=== PATIENT | female | born 1955 | race Caucasian/White ===

== ENCOUNTER → 2017-12-03 09:33 | Outpatient (CLI) | payer OTHER, SELFPAY ==
[2017-12-03 10:16] LABS: Absolute Neutrophil Count 2.9 X10^3/uL (2.0-7.7); Basophil# 0.01 X10^3/uL; Basophil% 0.2 % (0-1); Eosinophil# 0.12 X10^3/uL; Eosinophils% 2.5 % (0-5); Hematocrit 42.4 % (37-47); Hemoglobin 14.3 g/dl (12.0-15.0); Lymphocyte % 27.3 % (19-41); Mean Corp Hgb Conc 33.7 g/gl (32-36); Mean Corpuscular Hgb 31.2 pg (27.0-32.0); Mean Corpuscular Volume 92.6 fL (81-99); Monocyte# 0.45 X10^3/uL; Monocyte% 9.4 % (0-10); Neutrophil # 2.88 X10^3/uL (2.7-7.7); Neutrophil % 60.4 % (47-70); Platelet Count 207 K/mm3 (150-450); RBC Distribution Width CV 12.6 % (11.6-14.6); Red Blood Count 4.58 M/mm3 (4.2-5.4); White Blood Count 4.8 K/mm3 (4.4-11.0)
[2017-12-03 10:29] LABS: POSITIVE COUNT NO; POSITIVE DIFFERENTIAL NO; POSITIVE MORPHOLOGY NO
[2017-12-03 10:48] LABS: Hemoglobin A1c 5.8 % (4.2-6.3)
[2017-12-03 10:57] LABS: Anion Gap 3 (5-15); BUN 19 mg/dL (7-18); BUN/Creat Ratio 19.7 RATIO (10-20); Calcium,Total 8.6 mg/dL (8.5-10.1); Chloride 106 mmol/L (98-107); Creatinine, Serum 0.97 mg/dL (0.55-1.02); EST Glomerular Filtration Rate 62 mL/min (>60); Est Glom Filt Rate - Afr Amer 75 mL/min (>60); Glucose 99 mg/dL (74-106); Potassium 3.7 mmol/L (3.5-5.1); Sodium Level 141 mmol/L (136-145); Thyroid Stim Hormone (TSH) 3.72 uIU/mL (0.358-3.74)
[2017-12-03 11:02] LABS: Vitamin D,25 Hydroxy 35.3 ng/mL (29.95-100.01)
== END ==
PROVIDERS: Family Provider Family Medicine; PCP Family Medicine; Visit Provider Family Medicine
DX: I10 Essential (primary) hypertension (principal); R73.01 Impaired fasting glucose; R94.6 Abnormal results of thyroid function studies; E55.9 Vitamin D deficiency, unspecified
CPT/HCPCS: 36415; 80048; 82306; 83036; 84443; 85025

== ENCOUNTER → 2017-12-14 15:11 | Outpatient (CLI) | payer OTHER, SELFPAY | PROVIDERS: Family Provider Family Medicine; PCP Family Medicine; Visit Provider Family Medicine | DX: R05 Cough (principal) | CPT/HCPCS: 71046 ==

== ENCOUNTER 2018-09-21 09:00 | Outpatient (RCR) | payer OTHER, SELFPAY | END 2018-09-30 23:59 | LOC: NS 09:00 | PROVIDERS: Family Provider Family Medicine; PCP Family Medicine; Visit Provider Family Medicine | DX: E66.9 Obesity, unspecified (principal); Z68.31 Body mass index [BMI] 31.0-31.9, adult; Z71.3 Dietary counseling and surveillance | CPT/HCPCS: 97802; 97803 ==

== ENCOUNTER 2018-10-10 16:35 | Outpatient (RCR) | payer OTHER, SELFPAY | END 2018-10-30 23:59 | LOC: NS 16:35 | PROVIDERS: Family Provider Family Medicine; PCP Family Medicine; Visit Provider Family Medicine | DX: E66.9 Obesity, unspecified (principal); Z68.31 Body mass index [BMI] 31.0-31.9, adult; Z71.3 Dietary counseling and surveillance; I10 Essential (primary) hypertension | CPT/HCPCS: 97803 ==

== ENCOUNTER 2018-11-16 10:29 | Outpatient (RCR) | payer OTHER, SELFPAY | END 2018-11-30 23:59 | LOC: NS 10:29 | PROVIDERS: Family Provider Family Medicine; PCP Family Medicine; Visit Provider Family Medicine | DX: E66.9 Obesity, unspecified (principal); Z68.31 Body mass index [BMI] 31.0-31.9, adult; Z71.3 Dietary counseling and surveillance | CPT/HCPCS: 97803 ==

== ENCOUNTER 2018-12-14 10:27 | Outpatient (RCR) | payer OTHER, SELFPAY | END 2018-12-31 23:59 | LOC: NS 10:27 | PROVIDERS: Family Provider Family Medicine; PCP Family Medicine; Visit Provider Family Medicine | DX: E66.9 Obesity, unspecified (principal); Z68.31 Body mass index [BMI] 31.0-31.9, adult; Z71.3 Dietary counseling and surveillance; I10 Essential (primary) hypertension | CPT/HCPCS: 97803 ==

== ENCOUNTER → 2018-12-14 11:14 | Outpatient (CLI) | payer OTHER, SELFPAY ==
[2018-12-14 12:42] LABS: Hemoglobin A1c 5.8 % (4.2-6.3)
[2018-12-14 12:59] LABS: AST(SGOT) 25 U/L (15-37); Alanine Aminotransfer ALT/SGPT 28 U/L (13-56); Albumin, Serum 3.6 g/dL (3.2-5.0); Alkaline Phosphatase 111 U/L (45-117); Anion Gap 4 (5-15); BUN 15 mg/dL (7-18); BUN/Creat Ratio 15.1 RATIO (10-20); Calcium,Total 8.7 mg/dL (8.5-10.1); Chloride 105 mmol/L (98-107); Creatinine, Serum 0.99 mg/dL (0.55-1.02); EST Glomerular Filtration Rate 60 mL/min (>60); Est Glom Filt Rate - Afr Amer 73 mL/min (>60); Globulin 3.6 g/dL (2.2-4.2); Glucose 89 mg/dL (74-106); Potassium 3.8 mmol/L (3.5-5.1); Protein, Total 7.2 g/dL (6.4-8.2); Sodium Level 141 mmol/L (136-145); Thyroid Stim Hormone (TSH) 3.94 uIU/mL (0.358-3.74)
[2018-12-14 13:08] LABS: Vitamin D,25 Hydroxy 27.6 ng/mL (29.95-100.01)
== END ==
PROVIDERS: Family Provider Family Medicine; PCP Family Medicine; Referring Provider Family Medicine; Visit Provider Family Medicine
DX: I10 Essential (primary) hypertension (principal); E55.9 Vitamin D deficiency, unspecified; R73.01 Impaired fasting glucose; R94.6 Abnormal results of thyroid function studies
CPT/HCPCS: 36415; 80053; 82306; 83036; 84443

== ENCOUNTER → 2019-12-12 09:40 | Outpatient (CLI) | payer OTHER, SELFPAY ==
[2019-12-12 13:21] LABS: ALB/GLOB Ratio 1.1 RATIO (0.9-2.4); AST(SGOT) 20 U/L (15-37); Alanine Aminotransfer ALT/SGPT 27 U/L (13-56); Albumin, Serum 3.7 g/dL (3.2-5.0); Alkaline Phosphatase 110 U/L (45-117); Anion Gap 7 (5-15); BUN 13 mg/dL (7-18); BUN/Creat Ratio 13.8 RATIO (10-20); Calcium,Total 8.8 mg/dL (8.5-10.1); Chloride 105 mmol/L (98-107); Cholesterol 212 mg/dL (200); Creatinine, Serum 0.94 mg/dL (0.55-1.02); EST Glomerular Filtration Rate 64 mL/min (>60); Est Glom Filt Rate - Afr Amer 77 mL/min (>60); Globulin 3.5 g/dL (2.2-4.2); Glucose 100 mg/dL (74-106); High Density Lipoprotein 46 mg/dL; Potassium 3.8 mmol/L (3.5-5.1); Protein, Total 7.2 g/dL (6.4-8.2); Sodium Level 142 mmol/L (136-145); Triglycerides 218 mg/dL; Very Low Density Lipoprotein 44 mg/dL (5-40)
== END ==
PROVIDERS: PCP Family Medicine; Referring Provider Family Medicine; Visit Provider Family Medicine
DX: I10 Essential (primary) hypertension (principal)
CPT/HCPCS: 36415; 80053; 80061

== ENCOUNTER → 2019-12-29 10:48 | Outpatient (CLI) | payer OTHER, SELFPAY ==
--- NOTE | 2019-12-29 10:51 | RAD_ITS ---
STUDY: X-RAY - LUMBAR SPINE REASON FOR EXAM: Female, 64 years old. chronic low back pain TECHNIQUE: 5 view(s) of the lumbar spine were obtained. COMPARISON: June 05 2011 FINDINGS: Exaggerated lumbar lordosis. There is moderate dextro scoliosis. There is a normal alignment of the vertebrae. Chronic wedging of superior endplate of T12 No evidence for acute fracture or subluxation. Grade 1 retrolisthesis at L3-4 with mild narrowing of the disc space. The soft tissue structures are unremarkable. No significant change since prior exam RAD/L/S Spine Min 4 Views IMPRESSION: Scoliosis and mild degenerative changes. No acute fracture or other significant bony pathology Electronically Signed: Sergey Luo MD at 17:54 EDT , Service support ,
== END ==
PROVIDERS: PCP Family Medicine; Referring Provider Family Medicine; Visit Provider Family Medicine
DX: M54.5 Low back pain (principal)
CPT/HCPCS: 72110

== ENCOUNTER 2020-05-24 07:25 | Emergency (ER) | payer OTHER, SELFPAY ==
[2020-05-24 07:29] VITALS: BP 152/95; PULSE 71; RESP 18; TEMP 37.9; O2SAT 93; BMI 32.1
[2020-05-24 07:32] VITALS: BP 152/95; PULSE 71; RESP 18; TEMP 37.9; O2SAT 93
[2020-05-24 08:10] LABS: Mucous, Urine 0 SEEN /hpf (<or=2+); Red Blood Cells-Urine 0 SEEN /hpf (0-5)
[2020-05-24 08:12] LABS: Absolute Lymphocyte Count 1.26 X10^3/uL (0.83-4.51); Absolute Neutrophil Count 10.6 X10^3/uL (2.0-7.7); Basophil# 0.03 X10^3/uL; Basophil% 0.2 % (0-1); Eosinophil# 0.08 X10^3/uL; Eosinophils% 0.6 % (0-5); Hematocrit 42.6 % (37-47); Hemoglobin 14.6 g/dL (12.0-15.0); Lymphocyte # 1.26 X10^3/ul (4.0); Lymphocyte % 9.6 % (19-41); Mean Corp Hgb Conc 34.3 g/dL (32-36); Mean Corpuscular Hgb 32.2 pg (27.0-32.0); Monocyte# 1.13 X10^3/uL; Monocyte% 8.6 % (0-10); NRBC Flagged by Analyzer 0 % (0-5); Neutrophil # 10.56 X10^3/uL (2.7-7.7); Neutrophil % 80.6 % (47-70); Platelet Count 225 K/mm3 (150-450); RBC Distribution Width CV 11.9 % (11.6-14.6); RBC Distribution Width SD 41.2 fl (35.1-43.9); Red Blood Count 4.53 M/mm3 (4.2-5.4); White Blood Count 13.1 K/mm3 (4.4-11.0)
[2020-05-24 08:16] LABS: Color, Urine Yellow (Yellow); Glucose, Dipstick Normal (Normal); Ketone-Dipstick Negative (Negative); Leukocyte Esterase-Dipstick 500 /ul (Negative); Nitrite-Dipstick Negative (Negative); Occult Blood-Urine Negative /ul (Negative); Protein-Dipstick 15 mg/dl (Negative); Urine Bilirubin Dipstick Negative (Negative); Urine Clarity Sl. Cloudy (Clear); Urine Urobilinogen Normal (Normal)
[2020-05-24 08:26] LABS: Anion Gap 3 (5-15); BUN 14 mg/dL (7-18); BUN/Creat Ratio 14.3 RATIO (10-20); Calcium,Total 8.7 mg/dL (8.5-10.1); Chloride 107 mmol/L (98-107); Creatinine, Serum 0.98 mg/dL (0.55-1.02); EST Glomerular Filtration Rate 61 mL/min (>60); Est Glom Filt Rate - Afr Amer 74 mL/min (>60); Estimated Creatinine Clearance 44.34 ml/min; Glucose 110 mg/dL (74-106); Potassium 3.7 mmol/L (3.5-5.1); Sodium Level 140 mmol/L (136-145)
[2020-05-24 08:28] LABS: Bacteria 1+ /hpf (None Seen); Squamous Epithelial Cells - UA 0-5 SEEN /hpf (5-10); White Blood Cells 25-50 SEEN /hpf (0-5)
--- NOTE | 2020-05-24 09:04 | ED.VISSUMM ---
- ER Visit Summary Date of Service: 05/24/20 Chief Complaint: Abdominal pain History of Present Illness: The patient is a 64 F who presents with abdominal pain that began last night. Patient states it is gradually gotten worse. Patient states the pain is over the left lower quadrant and suprapubic area. Patient describes her pain as sharp. Patient states the pain is worse with certain movements. Patient states her pain improved when she lays on her right side. Patient denies any nausea or vomiting. Patient denies any diarrhea, melena, or hematochezia. Patient denies any dysuria or hematuria. Patient admits to a fever of 100. Patient also admits to subjective chills. Patient denies any chest pain or shortness of breath. Physical Examination: Vital signs are stable. Patient is afebrile. Patient is in no acute distress. Oral mucosa is pink and moist. Neck is supple. Trachea is midline. There is no JVD. Heart was regular rate and rhythm. Lungs are clear and equal bilaterally. Abdomen is soft. Bowel sounds are normal. There is suprapubic and left lower quadrant tenderness. There is no rebound or guarding noted. Cranial nerves II through XII are intact. There are no focal motor or sensory deficits noted. Extremities are intact. There is no calf tenderness or edema. Test Results: CBC shows a mild leukocytosis of 13.1. Basic metabolic profile was normal. Urinalysis shows leukocyte esterase of 500 with 25-50 white blood cells. There is 1+ bacteria. Emergency Department Course and Treatment: Patient was given a dose of Cipro here. Patient was given a prescription for Cipro. Patient was instructed to follow-up with her primary care physician in 3 to 5 days. Patient understood and was agreeable with the plan. All questions were answered. Disposition: Discharge home Impression: 1. Urinary tract infection This note was generated with [employer] dictation software. It may contain incorrect words, spelling, and punctuation that were not noted in review of the chart prior to signing ED Disposition - Plan for ED Patient: Disposition: Home or Assisted Living Diagnosis: Urinary tract infection Instructions: ED Bladder Infection, Female (Adult) Prescriptions: Ciprofloxacin [Cipro] 500 mg PO BID #6 tab Transmission Status: Pending to [id number] Referrals: Ronnie Dietrich MD [Primary Care Provider] - 3-5 Days
[2020-05-24] MEDS: Ciprofloxacin 500 MG Tablet PO (09:13)
== END 2020-05-24 09:20 | disposition home or self-care (01) ==
PROVIDERS: Emergency Provider Emergency Medicine; PCP Family Medicine
DX: N39.0 Urinary tract infection, site not specified (principal); I10 Essential (primary) hypertension
CPT/HCPCS: 80048; 81001; 85025; 99284

== ENCOUNTER → 2020-07-26 11:56 | Outpatient (CLI) | payer OTHER, SELFPAY ==
[2020-07-26 15:39] LABS: ALB/GLOB Ratio 1.2 RATIO (0.9-2.4); AST(SGOT) 24 U/L (15-37); Alanine Aminotransfer ALT/SGPT 28 U/L (13-56); Albumin, Serum 3.8 g/dL (3.2-5.0); Alkaline Phosphatase 111 U/L (45-117); Anion Gap 9 (5-15); BUN 15 mg/dL (7-18); BUN/Creat Ratio 15.3 RATIO (10-20); Calcium,Total 8.7 mg/dL (8.5-10.1); Chloride 102 mmol/L (98-107); Cholesterol 210 mg/dL (200); Creatinine, Serum 0.98 mg/dL (0.55-1.02); EST Glomerular Filtration Rate 61 mL/min (>60); Est Glom Filt Rate - Afr Amer 74 mL/min (>60); Globulin 3.3 g/dL (2.2-4.2); Glucose 87 mg/dL (74-106); High Density Lipoprotein 47 mg/dL; Potassium 3.5 mmol/L (3.5-5.1); Protein, Total 7.1 g/dL (6.4-8.2); Sodium Level 143 mmol/L (136-145); Thyroid Stim Hormone (TSH) 3.71 uIU/mL (0.358-3.74); Triglycerides 226 mg/dL; Very Low Density Lipoprotein 45 mg/dL (5-40)
== END ==
PROVIDERS: PCP Family Medicine; Referring Provider Family Medicine; Visit Provider Family Medicine
DX: R94.6 Abnormal results of thyroid function studies (principal); E78.5 Hyperlipidemia, unspecified
CPT/HCPCS: 36415; 80053; 80061; 84443

== ENCOUNTER → 2021-03-13 09:26 | Outpatient (CLI) | payer OTHER, SELFPAY ==
[2021-03-13 12:39] LABS: Cholesterol 195 mg/dL (200); High Density Lipoprotein 43 mg/dL; Triglycerides 239 mg/dL; Very Low Density Lipoprotein 48 mg/dL (5-40)
== END ==
PROVIDERS: Referring Provider Family Medicine; Visit Provider Family Medicine
DX: E78.5 Hyperlipidemia, unspecified (principal)
CPT/HCPCS: 36415; 80061

== ENCOUNTER → 2021-04-15 14:03 | Outpatient (CLI) | payer OTHER, SELFPAY ==
--- NOTE | 2021-04-15 14:06 | CT_ITS ---
STUDY: CT ABDOMEN AND PELVIS WITH CONTRAST REASON FOR EXAM: Female, 65 years old. INTERMITTENT ABD. PAIN RADIATION DOSAGE (If Supplied By Facility): CTDIvol = ( 14.95 ) mGy, DLP = ( 906.36 ) mGycm TECHNIQUE: Transaxial images were obtained from the dome of the diaphragm to the symphysis pubis with oral contrast. Oral and amp; IV Readi-CAT and amp; 100mL Isovue-300 was administered. Sagittal and coronal images were reconstructed. Individualized dose optimization techniques were used for this CT. COMPARISON: None. FINDINGS: The visualized lung bases are unremarkable. The visualized portions of the heart are within normal limits. Normal liver. There is nonspecific gallbladder wall thickening and a small amount of pericholecystic fluid but there is no CT evidence of gallstones, or biliary dilatation Normal spleen. Normal pancreas. Normal bilateral adrenal glands. Normal right kidney. Normal left kidney. Normal visualized stomach. Normal small intestine. Scattered sigmoid diverticulosis. There is also nonspecific thickening of the sigmoid colon likely sequela from previous acute diverticular disease. There is no CT evidence of acute diverticulitis, perforation or abscess. The appendix is visualized and appears normal. Appendix seen on coronal recon images 52 through 57 Normal abdominal aorta. Normal inferior vena cava. Normal retroperitoneum. Normal urinary bladder. Uterus is present, the endometrium cannot be accurately evaluated with CT. Normal abdominal wall. There are diffuse degenerative changes of the visualized lumbar spine. CT/Abdomen/Pelvis WITH Contrast IMPRESSION: Mild gallbladder wall thickening with a small amount of pericholecystic free fluid. However, there is no CT evidence of gallstones or biliary dilatation. Consider HIDA scan for further evaluation if cholecystitis is a strong clinical concern Scattered sigmoid diverticulosis, no CT evidence of acute diverticulitis Uterus is present, the endometrium cannot be accurately evaluated with CT. Normal appendix visualized Electronically Signed: Kings Rain MD at 15:30 EST , Service support ,
[2021-04-15 15:10] LABS: CREATININE FINGERSTICK 0.7 mg/dL (0.55-1.02); EGFR FINGERSTICK > 60.0000 mL/min (>60)
== END ==
PROVIDERS: PCP Family Medicine; Referring Provider Registered Nurse; Visit Provider Registered Nurse
DX: R10.9 Unspecified abdominal pain (principal)
CPT/HCPCS: 74177; Q9967

== ENCOUNTER 2021-07-22 09:31 | Outpatient (CLI) | payer OTHER, SELFPAY ==
[2021-07-22 12:44] LABS: Microalbumin,Random Urine 13.5 mg/L (NO RANGE EST.); Microalbumin:Creatinine Ratio 7.1 mg/g CRE (<30 mg/g CRE)
[2021-07-22 12:58] LABS: Anion Gap 3 (5-15); BUN 15 mg/dL (7-18); BUN/Creat Ratio 16.1 RATIO (10-20); Calcium,Total 9.3 mg/dL (8.5-10.1); Chloride 106 mmol/L (98-107); Creatinine, Serum 0.93 mg/dL (0.55-1.02); EST Glomerular Filtration Rate 64 mL/min (>60); Est Glom Filt Rate - Afr Amer 78 mL/min (>60); Glucose 91 mg/dL (74-106); Potassium 3.6 mmol/L (3.5-5.1); Sodium Level 141 mmol/L (136-145)
[2021-07-22 13:43] LABS: Cholesterol 209 mg/dL (200); High Density Lipoprotein 45 mg/dL; Triglycerides 250 mg/dL; Very Low Density Lipoprotein 50 mg/dL (5-40)
== END 2021-07-22 23:59 | disposition home or self-care (01) ==
LOC: MTLAB 09:34
PROVIDERS: Registered Nurse; PCP Family Medicine; Referring Provider Family Medicine; Visit Provider Family Medicine
DX: I10 Essential (primary) hypertension (principal); E78.5 Hyperlipidemia, unspecified
CPT/HCPCS: 36415; 80048; 80061; 82043; 82570

== ENCOUNTER → 2021-10-02 | Outpatient (CLI) | payer MEDICARE, OTHER, SELFPAY ==
--- NOTE | 2021-10-02 12:32 | RAD_ITS ---
STUDY: X-RAY - LEFT HAND REASON FOR EXAM: Female, 66 years old. hit left 5th digit against hand rail 2 months ago, still having pain PIP joint TECHNIQUE: 3 view(s) of the hand. COMPARISON: None. FINDINGS: Normal radiocarpal articulation. Normal distal radioulnar joint. Normal visualized carpal bones. Normal carpal articulations There is degenerative arthrosis of the carpometacarpal (CMC) articulation of the thumb. Normal second through fifth carpometacarpal joints. Normal metacarpi. Normal metacarpophalangeal joint of the thumb. Normal interphalangeal joint of the thumb. Normal proximal and distal phalanges of the thumb. Normal metacarpophalangeal joints of the second through fifth fingers. Normal proximal and distal interphalangeal joints of the second through fifth fingers. Normal phalanges of the second through fifth fingers. The soft tissue structures are unremarkable. RAD/Hand Min 3 Views IMPRESSION: Osteoarthrosis of the first CMC joint. No fracture or malalignment. Electronically Signed: Chao Liao MD (Brooks) at 18:53 EDT Reading Location ID and State: [facility] / [place] , Service support ,
== END | disposition home or self-care (01) ==
LOC: MTRAD 12:32
PROVIDERS: PCP Nurse Practitioner Family; Referring Provider Nurse Practitioner Family; Visit Provider Nurse Practitioner Family
DX: M79.645 Pain in left finger(s) (principal)
CPT/HCPCS: 73130

== ENCOUNTER → 2022-07-13 | Outpatient (CLI) | payer MEDICARE, OTHER, SELFPAY ==
[2022-07-13 12:42] LABS: ALB/GLOB Ratio 1.2 RATIO (0.9-2.4); AST(SGOT) 25 U/L (15-37); Alanine Aminotransfer ALT/SGPT 28 U/L (13-56); Albumin, Serum 3.7 g/dL (3.2-5.0); Alkaline Phosphatase 94 U/L (45-117); Anion Gap 8 (5-15); BUN 15 mg/dL (7-18); BUN/Creat Ratio 14.9 RATIO (10-20); Calcium,Total 9.3 mg/dL (8.5-10.1); Chloride 106 mmol/L (98-107); Creatinine, Serum 1.01 mg/dL (0.55-1.02); EST Glomerular Filtration Rate 58 mL/min (>60); Est Glom Filt Rate - Afr Amer 71 mL/min (>60); Globulin 3.1 g/dL (2.2-4.2); Glucose 104 mg/dL (74-106); Potassium 3.6 mmol/L (3.5-5.1); Protein, Total 6.8 g/dL (6.4-8.2); Sodium Level 142 mmol/L (136-145)
== END | disposition home or self-care (01) ==
LOC: MFPLAB 10:11
PROVIDERS: PCP Nurse Practitioner Family; Visit Provider Nurse Practitioner Family
DX: I10 Essential (primary) hypertension (principal)
CPT/HCPCS: 36415; 80053

== ENCOUNTER → 2023-01-08 | Outpatient (CLI) | payer MEDICARE, OTHER, SELFPAY ==
[2023-01-08 12:35] LABS: Hemoglobin A1c 5.7 % (3.8-5.6)
[2023-01-08 12:56] LABS: AST(SGOT) 22 U/L (15-37); Alanine Aminotransfer ALT/SGPT 22 U/L (13-56); Albumin, Serum 3.4 g/dL (3.2-5.0); Alkaline Phosphatase 103 U/L (45-117); Anion Gap 5 (5-15); BUN 20 mg/dL (7-18); BUN/Creat Ratio 21.9 RATIO (10-20); Calcium,Total 8.5 mg/dL (8.5-10.1); Chloride 107 mmol/L (98-107); Cholesterol 201 mg/dL (200); Creatinine, Serum 0.91 mg/dL (0.55-1.02); EST Glomerular Filtration Rate 66 mL/min (>60); Est Glom Filt Rate - Afr Amer 79 mL/min (>60); Globulin 3.3 g/dL (2.2-4.2); Glucose 91 mg/dL (74-106); High Density Lipoprotein 46 mg/dL; Potassium 3.4 mmol/L (3.5-5.1); Protein, Total 6.7 g/dL (6.4-8.2); Sodium Level 142 mmol/L (136-145); Thyroid Stim Hormone (TSH) 4.08 uIU/mL (0.358-3.74); Triglycerides 218 mg/dL; Very Low Density Lipoprotein 44 mg/dL (5-40)
[2023-01-08 13:04] LABS: Microalbumin,Random Urine 24.3 mg/L (NO RANGE EST.); Microalbumin:Creatinine Ratio 9.5 mg/g CRE (<30 mg/g CRE)
== END | disposition home or self-care (01) ==
LOC: MTLAB 09:31
PROVIDERS: PCP Family Medicine; Referring Provider Family Medicine; Visit Provider Family Medicine
DX: E78.5 Hyperlipidemia, unspecified (principal); I10 Essential (primary) hypertension; R94.6 Abnormal results of thyroid function studies; E55.9 Vitamin D deficiency, unspecified; R73.01 Impaired fasting glucose
CPT/HCPCS: 36415; 80053; 80061; 82043; 82306; 82570; 83036; 84443

== ENCOUNTER → 2023-01-20 | Outpatient (CLI) | payer MEDICARE, OTHER, SELFPAY ==
[2023-01-20 15:56] LABS: Free T3 2.3 pg/mL (2.18-3.98); Thyroid Stim Hormone (TSH) 4.12 uIU/mL (0.358-3.74)
[2023-01-23 08:10] LABS: Anti-Thyroglobulin AB < 1.0 IU/mL (0.0-0.9); Thyroglobulin, Serum Qt. 18.2 ng/mL (1.5-38.5); Thyroid Peroxidase AB 16 IU/mL (0-34); Thyroid Stim Immunoglob <0.10 IU/L (0.00-0.55)
== END | disposition home or self-care (01) ==
LOC: MFPLAB 12:11
PROVIDERS: PCP Family Medicine; Visit Provider Family Medicine
DX: R94.6 Abnormal results of thyroid function studies (principal); R79.89 Other specified abnormal findings of blood chemistry
CPT/HCPCS: 36415; 84432; 84439; 84443; 84445; 84481; 86376; 86800

== ENCOUNTER → 2023-02-04 | Outpatient (CLI) | payer MEDICARE, OTHER, SELFPAY | END | disposition home or self-care (01) | LOC: LABSPEC 12:17 | PROVIDERS: PCP Family Medicine; Referring Provider Family Medicine; Visit Provider Family Medicine | DX: N39.0 Urinary tract infection, site not specified (principal) | CPT/HCPCS: 87077; 87086; 87088; 87186 ==

== ENCOUNTER → 2024-02-21 | Outpatient (CLI) | payer MEDICARE, OTHER, SELFPAY ==
--- NOTE | 2024-02-21 09:37 | RAD_ITS ---
STUDY: X-RAY - LEFT WRIST REASON FOR EXAM: Female, 68 years old. Pain and stiffness TECHNIQUE: 4 view(s) of the wrist were obtained. COMPARISON: None. FINDINGS: Normal visualized distal radius and ulna. Normal radiocarpal articulation. Normal distal radioulnar articulation. Normal carpal bones. Normal carpal articulations. Normal carpometacarpal articulation of the thumb. Normal second through fifth carpometacarpal articulations. Normal visualized metacarpal bones. The soft tissue structures are unremarkable. RAD/Wrist min 3 Views IMPRESSION: Normal x-ray examination of the wrist. Electronically Signed: Kings Rain MD at 14:21 EDT ,
== END | disposition home or self-care (01) ==
PROVIDERS: PCP Family Medicine; Referring Provider Family Medicine; Visit Provider Family Medicine
DX: M25.532 Pain in left wrist (principal); S69.92XS Unspecified injury of left wrist, hand and finger(s), sequela
CPT/HCPCS: 73110

== ENCOUNTER → 2024-09-04 | Outpatient (CLI) | payer MEDICARE, OTHER, SELFPAY ==
--- NOTE | 2024-09-04 15:44 | RAD_ITS ---
EXAM: DX foot minimum three views CLINICAL HISTORY: Left heel pain TECHNIQUE: Three views left foot FINDINGS: No fracture or dislocation. No osseous destruction or periosteal reaction. Joint spaces appear within limits. 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 Soft tissues appear within limits. RAD/Foot min 3 Views IMPRESSION: Study appears within limits. Reading Location: [id number]
--- NOTE | 2024-09-04 15:44 | RAD_ITS ---
EXAM: DX foot minimum three views CLINICAL HISTORY: Right foot pain TECHNIQUE: Three views right foot FINDINGS: No fracture or dislocation. No osseous destruction or periosteal reaction. Joint spaces appear within limits. 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 Soft tissues appear within limits. RAD/Foot min 3 Views IMPRESSION: Study appears within limits. Reading Location: [id number]
== END | disposition home or self-care (01) ==
LOC: MTRAD 15:41
PROVIDERS: PCP Family Medicine; Referring Provider Family Medicine; Visit Provider Family Medicine
DX: S99.921S Unspecified injury of right foot, sequela (principal); M79.672 Pain in left foot
CPT/HCPCS: 73630

== ENCOUNTER → 2024-09-07 | Outpatient (CLI) | payer MEDICARE, OTHER, SELFPAY ==
--- NOTE | 2024-09-07 10:42 | VDLE_ITS ---
Reason For Study Reason For Study: Pain RIGHT LEFT GSV is normal. GSV is normal. CFV is compressible, spontaneous, phasic, competent CFV is compressible, spontaneous, phasic, competent, and demonstrates normal augmentation. and demonstrates normal augmentation. FV is compressible, spontaneous, phasic, competent FV is compressible, spontaneous, phasic, competent and demonstrates normal augmentation. and demonstrates normal augmentation. POP V is compressible, spontaneous, phasic, competent POP V is compressible, spontaneous, phasic, competent and demonstrates normal augmentation. and demonstrates normal augmentation. T/P Trunk is compressible. T/P Trunk is compressible. PTV is compressible. PTV is compressible. RT PerV is compressible. LT PerV is compressible. Procedure This is a venous duplex using B-mode, color flow and spectral Doppler. Exam performed in department. A preliminary report was called and/or faxed to Sergey Ramos DPM. VL/Venous Duplex US - Shaq Extrem Interpretation Summary Deep veins of the lower extremities are bilaterally patent and compressible seg mentally. There is no evidence of deep vein thrombosis on either side. Valvular competence appears intact within the p roximal deep venous systems bilaterally. The great saphenous veins appear bilaterally patent and compressible segmentall y. Ordering Physician: Sergey Ramos Referring Physician: Sergey Ramos Performed By: Anne Marie Esparza RVT
== END | disposition home or self-care (01) ==
LOC: CVS 10:40
PROVIDERS: PCP Family Medicine; Referring Provider Podiatrist; Visit Provider Podiatrist
DX: M79.605 Pain in left leg (principal); M79.604 Pain in right leg
CPT/HCPCS: 93970

== ENCOUNTER 2024-09-09 20:03 | Emergency (ER) | payer MEDICARE, OTHER, SELFPAY ==
[2024-09-09 20:03] VITALS: BP 175/70; PULSE 67; RESP 18; TEMP 36.9; O2SAT 95; BMI 31.7
--- NOTE | 2024-09-09 20:33 | EX.ED.DYSGE1 ---
HPI <IVON Munoz - Last Filed: 09/09/24 21:42> History of Present Illness Chief Complaint: Edema Narrative Narrative: 69-year-old female with PMH of hypertension, atopic dermatitis, trigeminal neuralgia presents with bilateral lower extremity swelling and redness x 6 weeks. Doing well. She states she has had negative x-rays of both feet. Since there was redness and warmth on both dorsal feet she was given antibiotics x 2 rounds to treat cellulitis. She had some improvement but the swelling/redness returned. She had a podiatry appointment 3 days ago and was suspected it was a side effect from amlodipine. She was started on amlodipine 5 mg in May and increased to 10 mg in July. She has been off amlodipine now for 4 days but the ankle swelling became worse this evening. She has no fever or chills. No chest pain or shortness of breath. No nausea vomiting or diarrhea. PFSH <IVON Munoz - Last Filed: 09/09/24 21:42> [facility] Medical History (Updated 09/09/24 @ 21:33 by IVON Munoz) Trigeminal neuralgia Home Medications ?Medication ?Instructions ?Recorded ?Last Taken ?Type Carbamazepine 200 mg PO BID 05/24/20 Unknown History dupilumab 300 mg/2 mL subcutaneous 300 mg SQ FR 05/24/20 Unknown History pen injector hydrochlorothiazide 25 mg tablet 12.5 mg PO Q12H 05/24/20 Unknown History latanoprost 0.005 % eye drops 1 drp EACH EYE QHS 05/24/20 Unknown History metoprolol succinate 100 mg 100 mg PO DAILY 05/24/20 Unknown History tablet,extended release 24 hr Allergy/AdvReac Type Severity Reaction Status Date / Time amlodipine AdvReac Swelling Verified 09/09/24 20:25 gabapentin AdvReac Other Verified 09/09/24 20:05 Social History Smoking Status: Never smoker ROS <IVON Munoz - Last Filed: 09/09/24 21:42> ROS ED ROS Narrative Constitutional: Negative for fever, chills, malaise. Respiratory: Negative for shortness of breath. GI: Negative for abdominal pain, nausea, vomiting. Neuro: Negative for headache, motor/sensory dysfunction. Skin: Negative for rash, abscess, or wound. Musc: Negative for joint pain, swelling, trauma. Heme: Negative for easy bruising, bleeding, lymphadenopathy. EXAM <IVON Munoz - Last Filed: 09/09/24 21:42> Physical Exam Narrative Exam Narrative: CONST: Patient sitting in no acute distress. EYES: Normal inspection. NECK: Normal inspection. RESP: No respiratory distress, CTAB. CVS: Regular rate and rhythm, no murmur, no gallop. ABD: Soft and nontender, no guarding or rebound, nondistended. SKIN: Color normal, no rash, warm, dry, intact. EXTREMITIES: Mild symmetric swelling of both ankles, warmth and blanching erythema of the dorsal feet. There is no lymphangitic streaking. Compartments are soft and calves are nontender. Full range of motion, 5/5 strength in dorsi flexion and plantarflexion, normal sensation, 2+ DP pulses. NEURO: Alert and answering questions appropriately. PSYCH: Normal affect. Const Vital Signs: 09/09/24 20:03 09/09/24 20:26 09/09/24 21:54 Temperature 98.4 F 98.5 F Temperature Source Oral Pulse Rate 67 61 Respiratory Rate 18 16 Respiratory Effort Normal Respiratory Pattern Normal Blood Pressure 175/70 H 161/61 H Blood Pressure Mean 105 94 Pulse Ox 95 97 Oxygen Delivery Method Room Air <Dr. Iam Philippe DO - Last Filed: 09/10/24 00:29> Physical Exam Const Vital Signs: 09/09/24 20:03 09/09/24 20:26 09/09/24 21:54 Temperature 98.4 F 98.5 F Temperature Source Oral Pulse Rate 67 61 Respiratory Rate 18 16 Respiratory Effort Normal Respiratory Pattern Normal Blood Pressure 175/70 H 161/61 H Blood Pressure Mean 105 94 Pulse Ox 95 97 Oxygen Delivery Method Room Air MDM <IVON Munoz - Last Filed: 09/09/24 21:42> [facility] Narrative Medical decision making narrative: 69-year-old female has had 6 weeks of bilateral ankle and foot edema and erythema. She has had extensive outpatient workup with negative x-rays, duplex ultrasounds, and antibiotic trial x 2 for cellulitis. She appears well nontoxic. Vital signs stable. She has +1 edema both ankles with warmth and redness of the dorsal feet. There is no crepitus or lymphangitic streaking and with her history I do not suspect infection. Blood work was obtained. CBC and CMP only notable for mild hypokalemia at 3.2. When she discontinued her amlodipine 4 days ago she was instructed to double her HCTZ which likely caused the hypokalemia and she was given p.o. potassium here. BNP normal. At this point labs are reassuring and I discussed that if this is a side effect of amlodipine it could take 1 to 2 weeks for the swelling to resolve. She was instructed to follow-up with her primary care doctor and was discharged in stable condition. History & Record Review Discussion w/independent historian: Patient and Family Additional record(s) reviewed:: Prior labs Lab Data Attestation: I reviewed the patient's lab results. Labs: Laboratory Results - last 24 hr 09/09/24 09/09/24 20:20 21:00 WBC 8.7 RBC 4.17 L Hgb 13.2 Hct 39.2 MCV 94.0 MCH 31.7 MCHC 33.7 RDW Std Deviation 41.0 RDW Coeff of Jazmyn 11.9 Plt Count 277 MPV 9.8 Immature Gran % (Auto) 0.300 Neut % (Auto) 73.5 H Lymph % (Auto) 14.4 L [place] % (Auto) 10.0 Eos % (Auto) 1.6 Baso % (Auto) 0.2 Absolute Neuts (auto) 6.4 Absolute Lymphs (auto) 1.26 Nucleated RBC % 0 Sodium 139 Potassium 3.2 L Chloride 99 Carbon Dioxide 30.3 Anion Gap 10 BUN 17 Creatinine 1.03 Estim Creat Clear Calc 48.82 L Est GFR (MDRD) Non-Af 59 L BUN/Creatinine Ratio 16.2 Glucose 123 H Calcium 9.0 Total Bilirubin < 0.15 AST 22 ALT 14 Alkaline Phosphatase 97 NT pro BNP II 132 Total Protein 6.7 Albumin 3.7 Globulin 3.0 Albumin/Globulin Ratio 1.2 <Dr. aIm Philippe, DO - Last Filed: 09/10/24 00:29> [facility] Narrative Medical decision making narrative: 69-year-old female has had 6 weeks of bilateral ankle and foot edema and erythema. She has had extensive outpatient workup with negative x-rays, duplex ultrasounds, and antibiotic trial x 2 for cellulitis. She appears well nontoxic. Vital signs stable. She has +1 edema both ankles with warmth and redness of the dorsal feet. There is no crepitus or lymphangitic streaking and with her history I do not suspect infection. Blood work was obtained. CBC and CMP only notable for mild hypokalemia at 3.2. When she discontinued her amlodipine 4 days ago she was instructed to double her HCTZ which likely caused the hypokalemia and she was given p.o. potassium here. BNP normal. At this point labs are reassuring and I discussed that if this is a side effect of amlodipine it could take 1 to 2 weeks for the swelling to resolve. She was instructed to follow-up with her primary care doctor and was discharged in stable condition. Attending note: I have personally performed a face to face assessment of the patient and have reviewed the PERFECTO note. I personally made/approved the management plan and take responsibility for the patient management. I performed a substantive portion of the visit including all aspects of the following. My marin findings include: 4 weeks intermittent swelling ankle and feet. Was started on amlodipine June was increased 10 mg with symptoms started. Has been off of it now for 4 days. Was treated with 2 rounds of antibiotics due to redness. She has no fevers. Outpatient ultrasounds negative for DVTs by her PCP. Her hydrochlorothiazide was doubled when her amlodipine was stopped. Examination mild swelling bilateral ankle and feet with erythema that blanches. Pulses are intact soft compartments. Labs significant only for potassium of 3.2 white count normal at 8.7. Oral replacement was given. She is reassured on findings. She will picker compression stockings she will continue to elevate. She will follow-up with her PCP. Lab Data Labs: Laboratory Results - last 24 hr 09/09/24 09/09/24 20:20 21:00 WBC 8.7 RBC 4.17 L Hgb 13.2 Hct 39.2 MCV 94.0 MCH 31.7 MCHC 33.7 RDW Std Deviation 41.0 RDW Coeff of Jazmyn 11.9 Plt Count 277 MPV 9.8 Immature Gran % (Auto) 0.300 Neut % (Auto) 73.5 H Lymph % (Auto) 14.4 L [place] % (Auto) 10.0 Eos % (Auto) 1.6 Baso % (Auto) 0.2 Absolute Neuts (auto) 6.4 Absolute Lymphs (auto) 1.26 Nucleated RBC % 0 Sodium 139 Potassium 3.2 L Chloride 99 Carbon Dioxide 30.3 Anion Gap 10 BUN 17 Creatinine 1.03 Estim Creat Clear Calc 48.82 L Est GFR (MDRD) Non-Af 59 L BUN/Creatinine Ratio 16.2 Glucose 123 H Calcium 9.0 Total Bilirubin < 0.15 AST 22 ALT 14 Alkaline Phosphatase 97 NT pro BNP II 132 Total Protein 6.7 Albumin 3.7 Globulin 3.0 Albumin/Globulin Ratio 1.2 Discharge Plan Triage Chief Complaint: Edema ED Midlevel Provider: Sandy Guadalupe ED Provider: Iam Philippe Dx/Rx/DC Orders Clinical Impression: Ankle edema, bilateral, Acute hypokalemia Instructions: ED Peripheral Edema, Bilateral Prescriptions: No Action latanoprost 1 DROP bottle 1 drp EACH EYE QHS metoprolol succinate 100 MG tablet extended release 24 hr 100 mg PO DAILY hydrochlorothiazide 25 MG tablet 12.5 mg PO Q12H dupilumab 300 MG/2 ML pen injector 300 mg SQ FR Carbamazepine 100 MG Cpmp.12hr 200 mg PO BID Primary Care Provider: Jose Soto Referrals: Jose Soto MD [Primary Care Provider] - Activity Restrictions/Additional Instructions: Your blood work overall looks normal except for a slightly low potassium at 3.2. This could be from the increased dose of your HCTZ. You were given a dose of potassium here. Your leg swelling could be a side effect of amlodipine which could take 1 to 2 weeks to resolve after stopping the medication. If symptoms continue I recommend follow-up with your primary care doctor. Print Language: Wallisian Disposition Disposition: Home, Self Care Discharge Date/Time: 09/09/24 21:59
[2024-09-09 20:46] LABS: Absolute Lymphocyte Count 1.26 X10^3/uL (0.83-4.51); Absolute Neutrophil Count 6.4 X10^3/uL (2.0-7.7); Basophil# 0.02 X10^3/uL; Basophil% 0.2 % (0-1); Eosinophil# 0.14 X10^3/uL; Eosinophils% 1.6 % (0-5); Hematocrit 39.2 % (37-47); Hemoglobin 13.2 g/dL (12.0-15.0); Lymphocyte # 1.26 X10^3/ul (0.83-4.51); Lymphocyte % 14.4 % (19-41); Mean Corp Hgb Conc 33.7 g/dL (32-36); Mean Corpuscular Hgb 31.7 pg (27.0-32.0); Mean Platelet Vol. 9.8 fl (6.2-12.0); Monocyte# 0.87 X10^3/uL; NRBC Flagged by Analyzer 0 % (0-5); Neutrophil # 6.41 X10^3/uL (2.7-7.7); Neutrophil % 73.5 % (47-70); Platelet Count 277 K/mm3 (150-450); RBC Distribution Width CV 11.9 % (11.6-14.6); Red Blood Count 4.17 M/mm3 (4.2-5.4); White Blood Count 8.7 K/mm3 (4.4-11.0)
[2024-09-09 21:28] LABS: Pro- Brain NATRIURETIC PEPTIDE 132 pg/mL (<=900)
[2024-09-09 21:30] LABS: ALB/GLOB Ratio 1.2 RATIO (0.9-2.4); AST(SGOT) 22 U/L (<=31); Alanine Aminotransfer ALT/SGPT 14 U/L (<=34); Albumin, Serum 3.7 g/dL (3.4-4.8); Alkaline Phosphatase 97 U/L (35-104); Anion Gap 10 (5-15); BUN 17 mg/dL (4-19); BUN/Creat Ratio 16.2 RATIO (10-20); Carbon Dioxide 30.3 mmol/L (21.0-32.0); Chloride 99 mmol/L (98-108); Creatinine, Serum 1.03 mg/dL (0.70-1.20); EST Glomerular Filtration Rate 59 (>60); Estimated Creatinine Clearance 48.82 ml/min (50-250); Glucose 123 mg/dL (70-99); Potassium 3.2 mmol/L (3.3-5.1); Protein, Total 6.7 g/dL (5.9-8.4); Sodium Level 139 mmol/L (133-145); Total Bilirubin < 0.15 mg/dL (0.00-1.30)
[2024-09-09] MEDS: Potassium Chloride Oral Tablet 20 MEQ 40 MEQ PO (21:37)
[2024-09-09 21:54] VITALS: BP 161/61; PULSE 61; RESP 16; TEMP 36.9; O2SAT 97
== END 2024-09-09 21:59 | disposition home or self-care (01) ==
PROVIDERS: Physician Assistant; Emergency Provider Emergency Medicine; PCP Family Medicine; Visit Provider Emergency Medicine
DX: R60.0 Localized edema (principal); I10 Essential (primary) hypertension; E87.6 Hypokalemia; L20.9 Atopic dermatitis, unspecified; G50.0 Trigeminal neuralgia; Z79.899 Other long term (current) drug therapy
CPT/HCPCS: 80053; 83880; 85025; 99283; A4216

== ENCOUNTER → 2024-09-21 | Outpatient (CLI) | payer MEDICARE, OTHER, SELFPAY ==
--- NOTE | 2024-09-21 12:58 | BD_ITS ---
PROCEDURE: DEXA BONE DENSITY STUDY 09/21/2024 REASON FOR EXAM: F, age 69 y/o . Postmenopausal. TECHNIQUE: DXA scan of sites with data reported below. REFERENCE LINKS: ISCD Adult Positions COMPARISON: None FINDINGS: BMD and T-SCORES Lumbar spine: 1.281 g/cm2, T-score 1.8 Levels: L1 through L4 Left femoral neck: 0.913 g/cm2, T-score 0.6 Femoral neck comparison data not recommended for monitoring change. Left total hip: 0.949 g/cm2, T-score 0.1 Right femoral neck: 0.851 g/cm2, T-score 0.0 Femoral neck comparison data not recommended for monitoring change. Right total hip: 0.959 g/cm2, T-score 0.1 The World Health Organization has defined the following categories based on bone density: Normal bone density: T-score equal to or greater than -1.0 Osteopenia: T-score between -1.0 and -2.5 Osteoporosis: T-score equal to or less than -2.5 The patient does meet the pharmacological treatment recommendations for prevention of osteoporosis. BD/Dexa Bone Density Study IMPRESSION: NORMAL T-SCORES. Recommend follow-up as clinically warranted. Reading Location: [place] [id number]
--- NOTE | 2024-09-21 13:13 | ART_ITS ---
Reason For Study Reason For Study: Bilateral calf pain Procedure A bilateral lower extremity continuous wave Doppler with analog waveform analysis and ankle brachial indexes. Left Segmental Pressures Left brachial= 145mmHg. Left posterior tibial artery = 166mmHg. Left dorsalis pedis artery = 159mmHg. The left dorsalis pedis waveforms are triphasic. The left posterior tibial artery waveforms are triphasic. Right Segmental Pressures Right brachial= 135mmHg. Right posterior tibial artery = 172mmHg. Right dorsalis pedis artery = 154mmHg. The right dorsalis pedis waveforms are triphasic. The right posterior tibial artery waveforms are triphasic. Indices The right ankle brachial index by the dorsalis pedis is 1.06. The right ankle brachial index by the posterior tibial artery is 1.19. The left ankle brachial index by the dorsalis pedis is 1.10. The left ankle brachial index by the posterior tibial artery is 1.14. VL/Ankle Brachial Index Interpretation Summary Triphasic Doppler waveforms are noted at ankle level bilaterally. Pulse-volume recordings appear satisfactory at ankle and digital level bilaterally. Resting ankle-brachial indices are normal bilate rally. There is no evidence of significant arterial occlusive disease in the lower ext remities bilaterally. Ordering Physician: Jose Soto Referring Physician: JOSE SOTO MD Performed By: Enma Lehman RVT
== END | disposition home or self-care (01) ==
LOC: OPBD 12:44
PROVIDERS: PCP Family Medicine; Referring Provider Nurse Practitioner Family; Visit Provider Nurse Practitioner Family
DX: I73.9 Peripheral vascular disease, unspecified (principal); Z78.0 Asymptomatic menopausal state; Z13.820 Encounter for screening for osteoporosis
CPT/HCPCS: 77080; 93922

== ENCOUNTER → 2024-12-01 | Outpatient (CLI) | payer MEDICARE, OTHER, SELFPAY ==
[2024-12-01 16:26] LABS: AST(SGOT) 21 U/L (<=31); Alanine Aminotransfer ALT/SGPT 11 U/L (<=34); Albumin, Serum 3.9 g/dL (3.4-4.8); Alkaline Phosphatase 98 U/L (35-104); Anion Gap 10 (5-15); BUN 15 mg/dL (4-19); BUN/Creat Ratio 16.4 RATIO (10-20); Calcium,Total 9.1 mg/dL (7.6-11.0); Carbon Dioxide 27.3 mmol/L (21.0-32.0); Chloride 106 mmol/L (98-108); Globulin 2.3 g/dL (2.2-4.2); Glucose 104 mg/dL (70-99); Potassium 3.9 mmol/L (3.3-5.1)
== END | disposition home or self-care (01) ==
LOC: MFPLAB 11:24
PROVIDERS: PCP Family Medicine; Visit Provider Family Medicine
DX: E87.6 Hypokalemia (principal); R73.03 Prediabetes; R79.89 Other specified abnormal findings of blood chemistry
CPT/HCPCS: 36415; 80053; 83036; 84443

== ENCOUNTER → 2025-02-21 | Outpatient (CLI) | payer MEDICARE, OTHER, SELFPAY ==
--- NOTE | 2025-02-21 13:44 | ECHOD_ITS ---
Reason For Study Reason For Study: Palpitations Procedure This was a 2D Doppler, Color Flow transthoracic echocardiogram. Exam performed in department. Left Ventricle Normal LV size. Mild concentric left ventricular hypertrophy. The left ventricular ejection fraction is 70 %. Stage 1 diastolic dysfunction. Right Ventricle Normal right ventricle. Atria The left and right atria are normal. Mitral Valve Mild (1+) mitral valve insufficiency. Tricuspid Valve Mild (1+) tricuspid valve insufficiency. Normal pulmonary artery pressure. Aortic Valve Trisinus/trileaflet aortic valve. Pulmonic Valve Trivial pulmonic valve insufficiency. Great Vessels Normal sized aortic root. Pericardium/Pleural No pericardial effusion. MMode/2D Measurements & Calculations LVIDd: 3.8 cm IVSd: 1.2 cm Ao root diam: 3.1 cm LVIDs: 2.1 cm LVPWd: 0.95 cm LA dimension: 3.8 cm RVDd: 4.1 cm FS: 44.6 % LAV(MOD-bp): 31.7 ml LVAd ap4: 20.8 cm2 LVAd ap2: 26.8 cm2 LAV(MOD-bp) Indexed: 18.2 ml/m2 LVLd ap4: 7.0 cm LVLd ap2: 7.9 cm LAV(MOD-sp2): 28.7 ml EDV(MOD-sp4): 50.6 ml EDV(MOD-sp2): 76.1 ml LAV(MOD-sp4): 35.3 ml EDV(sp4-el): 52.9 ml EDV(sp2-el): 77.5 ml LVAs ap4: 9.3 cm2 LVAs ap2: 9.6 cm2 LVLs ap4: 5.2 cm LVLs ap2: 5.4 cm ESV(MOD-sp4): 14.8 ml ESV(MOD-sp2): 15.3 ml ESV(sp4-el): 14.2 ml ESV(sp2-el): 14.3 ml EF(MOD-sp4): 70.8 % EF(MOD-sp2): 79.9 % EF(sp4-el): 73.1 % SV(MOD-sp4): 35.8 ml SV(MOD-sp2): 60.8 ml SV(sp4-el): 38.6 ml SI(MOD-sp4): 20.6 ml/m2 SI(MOD-sp2): 34.9 ml/m2 LA A4 area: 13.9 cm2 LA dimension(2D): 4.0 cm RA A4 area: 12.0 cm2 TAPSE: 1.7 cm Time Measurements MV dec time: 0.30 sec Doppler Measurements & Calculations MV E max alex: 76.1 cm/sec Lat Peak E' Alex: 7.5 cm/sec Med Peak E' Alex: 5.2 cm/sec MV A max alex: 81.2 cm/sec E/E' lat: 10.2 E/E' med: 14.7 MV E/A: 0.94 Ao V2 max: 123.9 cm/sec LV V1 max: 113.5 cm/sec MV dec slope: 249.6 cm/sec2 Ao max P.1 mmHg LV V1 max P.1 mmHg Ao V2 mean: 87.3 cm/sec LV V1 mean P.0 mmHg Ao mean P.4 mmHg LV V1 mean: 84.5 cm/sec Ao V2 VTI: 29.0 cm LV V1 VTI: 25.3 cm AV (velocity ratio): 0.87 PA V2 max: 71.1 cm/sec TR max alex: 249.7 cm/sec TR max P.3 mmHg ECHO/Echo Complete Interpretation Summary Mild concentric left ventricular hypertrophy. The left ventricular ejection fraction is 70 %. Stage 1 diastolic dysfunction. Mild (1+) mitral valve insufficiency. Mild (1+) tricuspid valve insufficiency. Ordering Physician: Jose Soto Referring Physician: Jose Soto Performed By: Joshua Keys RDCS
== END | disposition home or self-care (01) ==
LOC: CVS 13:43
PROVIDERS: PCP Family Medicine; Referring Provider Family Medicine; Visit Provider Family Medicine
DX: R00.2 Palpitations (principal)
CPT/HCPCS: 93306

== ENCOUNTER → 2025-03-09 | Outpatient (CLI) | payer MEDICARE, OTHER, SELFPAY ==
--- NOTE | 2025-03-09 12:39 | RAD_ITS ---
PROCEDURE: KNEE 4 OR MORE VIEWS 03/09/2025 REASON FOR EXAM: RIGHT KNEE PAIN TECHNIQUE: Procedure Code: RADKN Modality: DX Procedure: KNEE 4 OR MORE VIEWS Laterality: Right COMPARISON: None FINDINGS: Bones: Four views of the right knee demonstrate normal mineralization of the osseous structures. There are no fractures or dislocations. Joints: Very mild osteoarthritic changes are seen involving the medial femorotibial, lateral femorotibial, and patellofemoral joints. Effusion: There is no suprapatellar bursa effusion. Soft tissues: Minimal soft tissue swelling of the knee is noted. RAD/Knee 4 or More Views IMPRESSION: Mild tricompartmental osteoarthritic changes of the right knee are noted. Mild soft tissue swelling right knee. Reading Location: [id number]
== END | disposition home or self-care (01) ==
LOC: MTRAD 12:37
PROVIDERS: PCP Family Medicine; Referring Provider Family Medicine; Visit Provider Family Medicine
DX: M25.561 Pain in right knee (principal)
CPT/HCPCS: 73564

== ENCOUNTER → 2025-03-23 | Outpatient (CLI) | payer MEDICARE, OTHER, SELFPAY ==
--- NOTE | 2025-03-23 16:52 | STRESSREP_ITS ---
Stress Test Report Exercise myocardial perfusion stress test. 69-year-old [female] with a history of [palpitations]. Stress protocol: Resting EKG demonstrates sinus bradycardia with a rate of [56] bpm. Resting blood pressure is [146/76] mmHg. The patient exercised according to the regular [facility] protocol for a total duration of [9 minutes and 30 seconds] attaining a maximum heart rate of [123] bpm which was [80%]% of maximum predicted heart rate; the maximum workload was [11.6] metabolic equivalents. At rest there were no ST or T wave changes noted to suggest ischemia. There was significant artifact at stage 4 in the inferior leads, obscuring interpretation. There were no specific ST depressions or T wave inversions consistent with myocardial is chemia in interpretable tracings. No clinical angina was noted the test was terminated due to the target heart rate being achieved/fatigue. The peak blood pressure was [210/70] mmHg. Rate-pressure product was [28009]. Conclusion: No significant arrhythmias noted. No ischemic EKG changes noted in interpretable strips. Probably normal exercise stress test.
== END | disposition home or self-care (01) ==
LOC: CVS 10:58
PROVIDERS: PCP Family Medicine; Referring Provider Family Medicine; Visit Provider Family Medicine
DX: R07.9 Chest pain, unspecified (principal); R00.2 Palpitations
CPT/HCPCS: 93017